=== PATIENT | female | born 1970 | race Caucasian/White ===

== ENCOUNTER 2017-11-05 10:24 | Day surgery (SDC) | payer OTHER ==
[~2017-11-05] VITALS: Ht 165.1 cm; Wt 137.4 kg
[~2017-11-05 10:24] MED LIST: ACET325; ALBIPROI INH; ALBU90OI; AMOX500; AZIT500 PO; BCP'S; BUPR100; BUPR75; BUTASPCAF PO; CEPH500; CEPH500 PO; CLAR500 PO; CLIN300 PO; CODACE30 PO; CODBUTASA PO; CRUTCH2 USE; CYAN100; CYCL10 PO; DHE; DIPH50; DULO60 PO; Desyrel50 MG PO; FAMC500 PO; FISH OIL 1,0001 EAC1 PO; FLUT.05NI; FLUT110OIA; FURO20 PO; FURO40; GARLIC OIL; GLIP5 PO; HYDACE5; HYDACE5 PO; HYDMOR2 PO; HYDMOR4; HYDPAM50; IBUP800 PO; Klor-Con 1010 MEQ PO; LEVFLO500 PO; LEVSOD137 PO; LEVSOD25; LEVSOD50; MAGOXI400; MAGOXI400 PO; METF500; METF500C; METF850 PO; MONT10T; MULVITMINE; NAPR500; NAPR500 PO; NAPR500ERA; NEW HTN MED; NICO14TP; ONDA4 PO; ONDA8ODT MM; OXYACE5T PO; PARO20; PARO30; PIOG15; PIOG30; PREG200; PREG50; PREG50 PO; PREG75; PROACE100; PROACE100 PO; PROC10 PO; PROC10ER PO; PROM25 PO; PROM25S PR; PROP65 PO; RIFA300; RXCODACET PO; RXHYDACE PO; RXHYDMOR2 PO; RXONDA4ODT MM; RXOXYACE PO; RXPROACE PO; SELENIUM; ST JOHN'S WORT; TOPI100; TOPI100 PO; TRAM50; TRAM50 PO; VANC250; VERA180ERB; Verapamil HCl360 MG PO; [UNRECOGNIZED DRUG - OTHER]; [UNRECOGNIZED DRUG - REMARK]
== END 2017-11-05 23:34 | disposition home or self-care (01) ==
LOC: ORSCMMR 10:24
PROVIDERS: Internal Medicine Gastroenterology
PROC: 0DBM8ZX Excision of Descending Colon, Via Natural or Artificial Opening Endoscopic, Diagnostic (ICD-10-PCS; principal; 2017-11-05 12:15)
PROC: 0DBL8ZX Excision of Transverse Colon, Via Natural or Artificial Opening Endoscopic, Diagnostic (ICD-10-PCS; principal; 2017-11-05 12:15)
PROC: 0DBH8ZX Excision of Cecum, Via Natural or Artificial Opening Endoscopic, Diagnostic (ICD-10-PCS; principal; 2017-11-05 12:15)
PROC: 0DBK8ZX Excision of Ascending Colon, Via Natural or Artificial Opening Endoscopic, Diagnostic (ICD-10-PCS; principal; 2017-11-05 12:15)
PROC: 0DBP8ZX Excision of Rectum, Via Natural or Artificial Opening Endoscopic, Diagnostic (ICD-10-PCS; principal; 2017-11-05 12:15)
DX: K50.90 Crohn's disease, unspecified, without complications (principal); D12.0 Benign neoplasm of cecum; D12.2 Benign neoplasm of ascending colon; D12.3 Benign neoplasm of transverse colon; D12.4 Benign neoplasm of descending colon; D12.8 Benign neoplasm of rectum; K64.8 Other hemorrhoids; K57.30 Diverticulosis of large intestine without perforation or abscess without bleeding; E66.01 Morbid (severe) obesity due to excess calories; Z68.43 Body mass index [BMI] 50.0-59.9, adult; E11.9 Type 2 diabetes mellitus without complications; I10 Essential (primary) hypertension; G47.33 Obstructive sleep apnea (adult) (pediatric); E07.9 Disorder of thyroid, unspecified; F32.9 Major depressive disorder, single episode, unspecified; F17.210 Nicotine dependence, cigarettes, uncomplicated; Z79.84 Long term (current) use of oral hypoglycemic drugs; Z79.899 Other long term (current) drug therapy
CPT/HCPCS: 82947; 88305; J7120

== ENCOUNTER → 2019-01-06 | Outpatient (CLI) | payer OTHER ==
[2019-01-09 15:06] LABS: HPV 16 Negative (Negative); HPV 18 Negative (Negative); HPV OTHER HR TYPES Negative (Negative)
== END | disposition home or self-care (01) ==
LOC: LAB 12:01 → LAB SHORT 12:01
PROVIDERS: Obstetrics & Gynecology
DX: Z01.419 Encounter for gynecological examination (general) (routine) without abnormal findings (principal)
CPT/HCPCS: 87624; G0123

== ENCOUNTER → 2019-01-06 | Outpatient (CLI) | payer OTHER | END | disposition home or self-care (01) | LOC: LAB SHORT 13:26 → PLD 13:26 | DX: N95.0 Postmenopausal bleeding (principal) | CPT/HCPCS: 88305 ==

== ENCOUNTER → 2024-04-04 | Outpatient (CLI) | payer OTHER ==
[2024-04-04 10:51] LABS: BASOPHILS ABSOLUTE AUTO 0.03 K/mm3 (0.00-0.23); BASOPHILS PERCENT AUTO 0 % (0-2); EOSINOPHILS ABSOLUTE AUTO 0.07 K/mm3 (0.00-0.68); EOSINOPHILS PERCENT AUTO 1 % (0-6); Hematocrit 41.4 % (33.0-51.0); Hemoglobin 13.9 g/dL (11.5-16.0); IMMATURE GRAN ABSOLUTE AUTO 0.03 K/mm3 (0.00-0.10); IMMATURE GRAN PERCENT AUTO 0 % (0-1); LYMPHOCYTES ABSOLUTE AUTO 1.01 K/mm3 (0.84-5.20); LYMPHOCYTES PERCENT AUTO 12 % (21-46); MONOCYTES ABSOLUTE AUTO 0.45 K/mm3 (0.16-1.47); MONOCYTES PERCENT AUTO 5 % (4-13); Mean Corpuscular HGB 30.5 pg (26.0-34.0); Mean Corpuscular HGB Conc 33.6 g/dL (31.5-36.5); Mean Corpuscular Volume 91 fL (80-100); Mean Platelet Volume 11.7 fL (9.1-12.4); NEUTROPHILS ABSOLUTE AUTO 6.78 K/mm3 (1.96-9.15); NEUTROPHILS PERCENT AUTO 81 % (41-73); Platelet Count 256 K/mm3 (150-400); RDW Standard Deviation 42.9 fL (35.1-46.3); Red Blood Cell Count 4.55 M/mm3 (3.80-5.20); White Blood Cell Count 8.37 K/mm3 (4.00-11.30)
[2024-04-04 10:57] LABS: Bun/Creatinine Ratio 17.6 (12.0-20.0); Calcium, Blood 9.4 mg/dL (8.5-10.1); Creatinine, Blood 1.25 mg/dL (0.40-1.00); Potassium, Blood 4.4 mmol/L (3.5-5.5)
== END | disposition home or self-care (01) ==
LOC: LAB 10:46 → LAB SHORT 10:46
PROVIDERS: Family Medicine
DX: E11.69 Type 2 diabetes mellitus with other specified complication (principal)
CPT/HCPCS: 80048; 85025

== ENCOUNTER → 2024-04-04 | Outpatient (CLI) | payer OTHER | END | disposition home or self-care (01) | LOC: LAB 10:34 → LAB SHORT 10:34 | DX: N39.0 Urinary tract infection, site not specified (principal) | CPT/HCPCS: 87086 ==

== ENCOUNTER 2024-04-19 08:32 | Inpatient (IN) | payer OTHER ==
[~2024-04-19] VITALS: Ht 165.1 cm; Wt 112.7 kg
[2024-04-19 09:41] LABS: BASOPHILS ABSOLUTE AUTO 0.05 K/mm3 (0.00-0.23); BASOPHILS PERCENT AUTO 0 % (0-2); EOSINOPHILS ABSOLUTE AUTO 0.05 K/mm3 (0.00-0.68); EOSINOPHILS PERCENT AUTO 0 % (0-6); Hematocrit 43.5 % (33.0-51.0); Hemoglobin 14.3 g/dL (11.5-16.0); IMMATURE GRAN ABSOLUTE AUTO 0.04 K/mm3 (0.00-0.10); IMMATURE GRAN PERCENT AUTO 0 % (0-1); LYMPHOCYTES ABSOLUTE AUTO 1.72 K/mm3 (0.84-5.20); LYMPHOCYTES PERCENT AUTO 14 % (21-46); MONOCYTES ABSOLUTE AUTO 0.68 K/mm3 (0.16-1.47); MONOCYTES PERCENT AUTO 6 % (4-13); Mean Corpuscular HGB 30.6 pg (26.0-34.0); Mean Corpuscular HGB Conc 32.9 g/dL (31.5-36.5); Mean Corpuscular Volume 93 fL (80-100); Mean Platelet Volume 12.4 fL (9.1-12.4); NEUTROPHILS ABSOLUTE AUTO 9.85 K/mm3 (1.96-9.15); NEUTROPHILS PERCENT AUTO 80 % (41-73); Platelet Count 204 K/mm3 (150-400); RDW Coefficient Variation 13.4 % (11.7-14.2); RDW Standard Deviation 46.1 fL (35.1-46.3); Red Blood Cell Count 4.67 M/mm3 (3.80-5.20); White Blood Cell Count 12.39 K/mm3 (4.00-11.30)
[2024-04-19] MEDS ORDERED: TRADJENTA5 MG PO (11:09)
[2024-04-19] MEDS ORDERED: ATORVASTATIN CA20 MG PO (11:09)
[2024-04-19] MEDS ORDERED: LISI20 PO (11:09)
[2024-04-19] MEDS ORDERED: CYMBALTA20 M2 PO (11:09)
[2024-04-19] MEDS ORDERED: OZEMPIC0.25 MG/02 SQ (11:09)
[2024-04-19] MEDS ORDERED: TOPI25 PO (11:10)
[2024-04-19] MEDS ORDERED: AMLODIPINE BESY10 MG PO (11:10)
[2024-04-19] MEDS ORDERED: FARXIGA5 MG PO (11:10)
[2024-04-19] MEDS ORDERED: Lactated Ringer's 1,000 ML IV ONE (11:25)
[2024-04-19] MEDS ORDERED: Ondansetron HCl 2 MG / ML 2ML Vial IV ONE (11:25)
[2024-04-19 11:40] LABS: Albumin, Blood 4.5 g/dL (3.4-5.0); Albumin/Globulin Ratio 1.1 (0.8-1.8); Bilirubin, Total 0.8 mg/dL (0.1-1.0); Calcium, Blood 8.4 mg/dL (8.5-10.1); Globulin, Blood 4.2 g/dL (2.2-4.0); Total Protein, Blood 8.7 g/dL (6.4-8.2)
[2024-04-19 11:41] LABS: Bun/Creatinine Ratio 7.4 (12.0-20.0); Creatinine, Blood 13.2 mg/dL (0.40-1.00)
[2024-04-19] MEDS ORDERED: NS 1,000 ML IV SCH (12:35)
[2024-04-19] MEDS ORDERED: NS 1,000 ML IV ONE (12:40)
[2024-04-19] MEDS ORDERED: DULoxetine HCL 20 MG Cap DR PO SCH (14:00)
[2024-04-19] MEDS ORDERED: Topiramate 25 MG Tab PO SCH (14:00)
[2024-04-19] MEDS ORDERED: Atorvastatin 10 MG Tab PO SCH (14:00)
[2024-04-19 14:20] VITALS: BP 109/58
--- NOTE | 2024-04-19 15:09 | NUR ---
ARRIVAL TO PCU patient arrived to pcu at 1410 and transfered to pcu bed independently. vital signs stable. tele sinus mayra 57. patient is alert and oriented x4. neuro is intact. perrla. denies chest pain/pressure, pain, or shortness of breath. reports nausea that comes and goes. see admit shift assessment. admit is complete.
[2024-04-19] MEDS ORDERED: LEVSOD100 PO (15:12)
[2024-04-19] MEDS ORDERED: Prochlorperazine Edisylate 10 mg Vial IV PRN (15:50)
[2024-04-19] MEDS ORDERED: Insulin Regular 100 UNIT/ML 10ML Vial SC SCH ×2 (16:30→18:00)
[2024-04-19 17:03] VITALS: BP 135/67
[2024-04-19 17:19] LABS: Source, Urine Clean Catch
[2024-04-19 17:27] LABS: Appearance, Urine Hazy (Clear); Blood, Urine 1+ (Neg); Color, Urine Yellow (P-Yellow); Glucose Qualitative, Urine Neg (Neg); Ketones, Urine Neg (Neg); Leukocyte Esterase, Urine 3+ (Neg); Nitrite, Urine Neg (Neg); Protein, Urine 2+ (Neg); Urobilinogen, Urine NORM (Normal)
[2024-04-19 17:39] LABS: Bilirubin, Urine 1+ (Neg)
[2024-04-19 17:40] LABS: Bacteria Many /hpf; Red Blood Cells, Urine 0-2 /hpf (0-2); Squamous Epithelial Cells Mod /hpf (Few)
--- NOTE | 2024-04-19 18:28 | NUR ---
shift summary no acute changes since previous note. vitals remain stable. see previous note
[2024-04-19 20:39] VITALS: BP 113/63
[2024-04-19] MEDS ORDERED: Acetaminophen 325 MG TABLET PO PRN (21:25)
--- NOTE | 2024-04-19 22:11 | NUR ---
TRANSFER PATIENT TRANSFERRED BY WHEELCHAIR FROM PCU 06 TO MEDICAL FLOOR ROOM 325. PATIENT ALERT AND ORIENTED X4, INDEPENDENT WITH AMBULATION. PATIENT WAS MEDICATED PER EMAR FOR PAIN. REPORT GIVEN TO MARISABEL Franco FOR ASSUMPTION OF CARE.
[2024-04-19 22:20] VITALS: BP 100/58
[2024-04-20 03:30] VITALS: BP 111/60
--- NOTE | 2024-04-20 04:48 | NUR ---
SHIFT SUMMARY ADMITTED FROM PCU 06 AT APPROXIMATELY 2200 WITH ACUTE RENAL FAILURE GALLSTONES PATIENT ON IV FLUIDS, 2 1000ML NS. PATIENT TYPE 2 DIABETIC. HUMALIN GIVEN PRIOR TO TRANSFER TO [facility]. PATIENT APPEARED TO SLEEP THROUGH THE NIGHT WITHOUT ISSUE. IV NS FLUIDS FINISHED AT 0205 PATIENT ABLE TO VERBALIZE AND MAKE NEEDS KNOW TO STAFF AND ABLE TO AMBULATE TO TOILET INDEPENDANTLY PATIENT ON CLEAR LIQUID DIET. SINUS RYTHM 62 @ 0258. BED IN LOW POSITION, RAILS X2, CALL LIGHT WITHIN REACH.
[2024-04-20 08:12] VITALS: BP 90/49
[2024-04-20 08:14] VITALS: BP 110/66
[2024-04-20 09:08] LABS: BASOPHILS ABSOLUTE AUTO 0.04 K/mm3 (0.00-0.23); BASOPHILS PERCENT AUTO 1 % (0-2); EOSINOPHILS ABSOLUTE AUTO 0.11 K/mm3 (0.00-0.68); EOSINOPHILS PERCENT AUTO 2 % (0-6); Hematocrit 35.8 % (33.0-51.0); Hemoglobin 11.8 g/dL (11.5-16.0); IMMATURE GRAN ABSOLUTE AUTO 0.01 K/mm3 (0.00-0.10); IMMATURE GRAN PERCENT AUTO 0 % (0-1); LYMPHOCYTES ABSOLUTE AUTO 1.47 K/mm3 (0.84-5.20); LYMPHOCYTES PERCENT AUTO 26 % (21-46); MONOCYTES ABSOLUTE AUTO 0.33 K/mm3 (0.16-1.47); MONOCYTES PERCENT AUTO 6 % (4-13); Mean Corpuscular HGB 30.3 pg (26.0-34.0); Mean Corpuscular Volume 92 fL (80-100); Mean Platelet Volume 12.7 fL (9.1-12.4); NEUTROPHILS ABSOLUTE AUTO 3.74 K/mm3 (1.96-9.15); NEUTROPHILS PERCENT AUTO 66 % (41-73); Platelet Count 142 K/mm3 (150-400); RDW Coefficient Variation 13.2 % (11.7-14.2)
[2024-04-20 09:37] LABS: Calcium, Blood 7.4 mg/dL (8.5-10.1); Creatinine, Blood 5.74 mg/dL (0.40-1.00)
[2024-04-20 15:10] VITALS: BP 126/70
[2024-04-20] MEDS ORDERED: NS 1,000 ML IV SCH (18:05)
[2024-04-20 19:04] VITALS: BP 110/55
--- NOTE | 2024-04-20 19:19 | NUR ---
VSS, A-Ox4 denies SOB, denies any pain, ambulates independently, on RA. Lungs clear, heart NS on tele, bowel sounds normative, on clear liquid tolerating well advanced to renal diet by end of shift. Pt can make needs known, call flowers in hand, bed in lowest position.
[2024-04-21 05:44] LABS: Hemoglobin 10.6 g/dL (11.5-16.0); Mean Corpuscular HGB 30.1 pg (26.0-34.0); Mean Corpuscular HGB Conc 33.1 g/dL (31.5-36.5); Mean Corpuscular Volume 91 fL (80-100); Mean Platelet Volume 12.9 fL (9.1-12.4); Platelet Count 121 K/mm3 (150-400); RDW Coefficient Variation 12.9 % (11.7-14.2); RDW Standard Deviation 42.7 fL (35.1-46.3); Red Blood Cell Count 3.52 M/mm3 (3.80-5.20); White Blood Cell Count 3.88 K/mm3 (4.00-11.30)
[2024-04-21 06:27] LABS: Albumin, Blood 3.2 g/dL (3.4-5.0); Anion Gap 10 mmol/L (3-11); Blood Urea Nitrogen 61 mg/dL (8-24); Bun/Creatinine Ratio 34.7 (12.0-20.0); CO2, Blood 26 mmol/L (21-32); Calcium, Blood 7.6 mg/dL (8.5-10.1); Chloride, Blood 108 mmol/L (98-108); Creatinine, Blood 1.76 mg/dL (0.40-1.00); Glomerular Filtration Rate 34 (60-); Glucose, Blood 109 mg/dL (70-99); Phosphorus, Blood 2.8 mg/dL (2.5-4.9); Potassium, Blood 4.1 mmol/L (3.5-5.5); Sodium, Blood 140 mmol/L (136-145)
[2024-04-21 08:01] VITALS: BP 109/64
--- NOTE | 2024-04-21 13:42 | NUR ---
Pt D/C at 1305, VSS, denies any pain, denies SOB, ambulates independently, on RA. D/C intructions given, safety ensured.
== END 2024-04-21 12:47 | disposition home or self-care (01) | DRG 683 ==
LOC: ER 08:32 → MEDS 14:19 → PCU 14:19 → MEDS 22:23
PROVIDERS: Emergency Medicine; ADMIT Family Medicine
DX: N17.0 Acute kidney failure with tubular necrosis (principal); E87.1 Hypo-osmolality and hyponatremia; Z68.41 Body mass index [BMI] 40.0-44.9, adult; E86.0 Dehydration; R33.9 Retention of urine, unspecified; E11.22 Type 2 diabetes mellitus with diabetic chronic kidney disease; I12.9 Hypertensive chronic kidney disease with stage 1 through stage 4 chronic kidney disease, or unspecified chronic kidney disease; N18.2 Chronic kidney disease, stage 2 (mild); G43.909 Migraine, unspecified, not intractable, without status migrainosus; S39.012A Strain of muscle, fascia and tendon of lower back, initial encounter; M54.9 Dorsalgia, unspecified; G89.29 Other chronic pain; E66.9 Obesity, unspecified; D72.829 Elevated white blood cell count, unspecified; I95.9 Hypotension, unspecified; R29.6 Repeated falls; Z88.8 Allergy status to other drugs, medicaments and biological substances; Z91.040 Latex allergy status; Z88.0 Allergy status to penicillin; Z91.048 Other nonmedicinal substance allergy status; Z79.899 Other long term (current) drug therapy; Z79.811 Long term (current) use of aromatase inhibitors
CPT/HCPCS: 36415; 72100; 80048; 80053; 80069; 81001; 82947; 83690; 83880; 85025; 85027; 87086; 96361; 96374; 99285-25; A9270; J1815; J2405; J7030; J7120

== ENCOUNTER → 2024-08-08 | Outpatient (CLI) | payer OTHER ==
[~2024-08-08] MED LIST changes: +AMLODIPINE BESY10 MG PO; +ATORVASTATIN CA20 MG PO; +CYMBALTA20 M2 PO; +FARXIGA5 MG PO; +LEVSOD100 PO; +LISI20 PO; +OZEMPIC0.25 MG/02 SQ; +TOPI25 PO; +TRADJENTA5 MG PO
[2024-08-08 20:00] LABS: Creatinine Urine 65.8 mg/dL (27.00-270.00); Protein, Urine Quantitative 19.5 mg/dL (0.0-11.9)
[2024-08-08 20:02] LABS: Microalbumin, Urine Quant. 7.17 mg/L (0.000-20.000)
== END ==
LOC: LAB 16:22 → LAB SHORT 16:22
PROVIDERS: Internal Medicine Nephrology
DX: N18.30 Chronic kidney disease, stage 3 unspecified (principal); D63.1 Anemia in chronic kidney disease; N25.81 Secondary hyperparathyroidism of renal origin; E55.9 Vitamin D deficiency, unspecified; E78.00 Pure hypercholesterolemia, unspecified; R76.9 Abnormal immunological finding in serum, unspecified; R94.5 Abnormal results of liver function studies; R94.6 Abnormal results of thyroid function studies; D51.8 Other vitamin B12 deficiency anemias; D52.8 Other folate deficiency anemias
CPT/HCPCS: 81050; 82043; 82570; 84156

== ENCOUNTER 2025-07-28 14:39 | Emergency (ER) | payer OTHER ==
[~2025-07-28] VITALS: Ht 165.1 cm; Wt 118.8 kg
[2025-07-28 15:30] VITALS: BP 145/63
[2025-07-28] MEDS ORDERED: HYDROcodone 5-APAP 325 TAB PO ONE (15:40)
[2025-07-28] MEDS ORDERED: Ketorolac Tromethamine 15mg Vial IM ONE (15:40)
[2025-07-28] MEDS ORDERED: RX Prepack 6 Tabs Oxycodone 5mg UD ONE (16:50)
[2025-07-28] MEDS ORDERED: ASPERFLEX1 EACH TOP (16:53)
== END 2025-07-28 16:58 | disposition home or self-care (01) ==
LOC: ER 14:39
DX: M25.562 Pain in left knee (principal); M25.552 Pain in left hip; M54.50 Low back pain, unspecified; E11.9 Type 2 diabetes mellitus without complications; Z91.81 History of falling; Z88.8 Allergy status to other drugs, medicaments and biological substances; Z88.6 Allergy status to analgesic agent; Z91.040 Latex allergy status; Z88.0 Allergy status to penicillin; Z91.09 Other allergy status, other than to drugs and biological substances; Z79.85 Long-term (current) use of injectable non-insulin antidiabetic drugs; Z79.890 Hormone replacement therapy; Z79.899 Other long term (current) drug therapy
CPT/HCPCS: 73502; 73562-LT; 96372; 99284-25; A9270; J1885